=== PATIENT | female | born 1980 | race Caucasian/White ===

== ENCOUNTER → 2016-11-10 | Outpatient (CLI) | payer OTHER ==
[~2016-11-10] MED LIST: MTR600X PO; OXYC-57 PO; PRENTAB26 PO
[2016-11-10 12:57] LABS: HEMATOCRIT 33.6 % (37-47)
[2016-11-10 13:49] LABS: URINE APPEARANCE CLEAR (CLEAR); URINE BILIRUBIN NEG (NEG); URINE COLOR YELLOW; URINE EPITHELIAL CELL AUTO 20-30 /lpf (0-5); URINE NITRITE NEG (NEG); UROBILINOGEN NEG (NEG)
[2016-11-10 13:58] LABS: MANUAL MICROSCOPIC REQUIRED? NO; REVIEW REQ? NO
[2016-11-10 14:24] LABS: GTGD 50 Grams
== END | disposition home or self-care (01) ==
LOC: C.LAB1850 11:35
PROVIDERS: ATTEND Obstetrics & Gynecology
DX: O09.523 Supervision of elderly multigravida, third trimester (principal)

== ENCOUNTER → 2016-12-30 | Outpatient (CLI) | payer OTHER | END | disposition home or self-care (01) | LOC: C.LABSPEC 13:40 | PROVIDERS: ATTEND Obstetrics & Gynecology | DX: O09.523 Supervision of elderly multigravida, third trimester (principal) ==

== ENCOUNTER 2017-01-19 05:58 | Inpatient (IN) | payer OTHER ==
--- NOTE | 2017-01-16 11:24 | PAT Medication Instructions ---
Service Date Jan 16, 2017. Current Home Medication List Multivit/Min/Iron/Fol Ac/Pren ( Vitamin), 1 TAB PO QPM Medication Instructions For Your Scheduled Surgery - Take the following medications as scheduled the night before surgery: Multivit/Min/Iron/Fol Ac/Pren ( Vitamin), 1 TAB PO QPM If you have any questions please call us at [phone] (Ann Fajardo PA-C) or [phone] or [phone]
[2017-01-16 12:19] LABS: BASO % 0.1 %; BASO ABS # 0.01 K/uL (0-0.2); COMPLETE YES; EOS % 0.6 %; HEMATOCRIT 32.9 % (37-47); IG% 0.6 %; LYMPH % 19.3 %; LYMPH ABS # 1.63 K/uL (1.2-3.4); MEAN CELL VOLUME 77.2 fL (80-100); MEAN CORPUSCULAR HEMOGLOBIN 25.4 pg (25-34); MEAN CORPUSCULAR HGB CONC 32.8 g/dl (32-36); MEAN PLATELET VOLUME 10.4 fL (7.4-10.4); MONO % 8.1 %; NEUT % 71.3 %; PLATELET COUNT 295 K/uL (130-400); RED BLOOD COUNT 4.26 M/uL (4.2-5.4); WHITE BLOOD COUNT 8.43 K/uL (4.8-10.8)
[~2017-01-19] VITALS: Ht 154.9 cm; Wt 79.4 kg
[2017-01-19] VITALS (14 sets, daily range): BP systolic 90–128; BP diastolic 60–76; PULSE 70–84; TEMP 36.5–37; O2SAT 95–100; Ht 154.9 cm; Wt 79.4 kg
[~2017-01-19 05:58] MED LIST changes: -MTR600X PO; -OXYC-57 PO
[2017-01-19] MEDS ORDERED: CITRIC ACID/SODIUM CITRATE 15 ML UDC PO SCH (06:00)
[2017-01-19] MEDS ORDERED: PATIENT'S HEIGHT AND/OR WEIGHT NEEDED SCH (06:00)
[2017-01-19] MEDS ORDERED: CEFAZOLIN IV 2,000 MG in DEXTROSE 5% 50ML IV SCH (06:00)
[2017-01-19] MEDS: LACTATED RINGER'S 1000ML 1,000 ML IV SCH ×2 (06:27→07:11)
[2017-01-19] MEDS ORDERED: DiphenhydrAMINE HCL 50 MG/ML VIAL IV PRN ×2 (07:00→08:30)
[2017-01-19] MEDS ORDERED: METOCLOPRAMIDE HCL INJ 20 MG in SODIUM CHLORIDE 0.9% 50ML 50 ML IV PRN (07:00)
[2017-01-19] MEDS ORDERED: NO NARCOTICS OR SEDATIVES SCH (07:00)
[2017-01-19] MEDS ORDERED: NALOXONE HCL INJ 0.08 MG in SYRINGE 1.8 ML IV PRN (07:00)
[2017-01-19] MEDS ORDERED: NALOXONE HCL INJ 1 MG in SODIUM CHLORIDE 0.9% 1000ML 1,000 ML IV PRN (07:00)
[2017-01-19] MEDS ORDERED: MEPERIDINE HCL 25 MG/ML CARP IV PRN (07:00)
[2017-01-19] MEDS ORDERED: NALOXONE HCL 0.4 MG/1 ML VIAL/CARP IV PRN (07:00)
[2017-01-19] MEDS ORDERED: MoRPHine SULFATE PF 1 MG/ML 10 ML AMP/VIAL EPI PRN (07:00)
[2017-01-19] MEDS ORDERED: PROMETHAZINE HCL INJ 25 MG in SODIUM CHLORIDE 0.9% 50ML 50 ML IV PRN (07:00)
[2017-01-19] MEDS ORDERED: SODIUM CHLORIDE 0.9% 1000ML 1,000 ML IV PRN (07:00)
[2017-01-19] MEDS ORDERED: NALBUPHINE HCL INJ 10 MG/ML AMP IV PRN (07:00)
[2017-01-19] MEDS ORDERED: MoRPHine SULFATE 2 MG/ML CARP IV PRN (07:00)
[2017-01-19] MEDS ORDERED: EpHEDrine SULFATE INJ 50 MG/ML AMP IV PRN (07:00)
[2017-01-19] MEDS ORDERED: ONDANSETRON INJ 2 MG/ML 2 ML VIAL IV PRN ×2 (07:00→08:30)
[2017-01-19] MEDS ORDERED: LACTATED RINGER'S 1000ML 500 ML IV PRN (07:00)
[2017-01-19] MEDS ORDERED: MoRPHine SULFATE PF 1 MG/ML 10 ML AMP/VIAL ONE (07:09)
[2017-01-19] MEDS ORDERED: OXYTOCIN INJ 10 UNITS/ML VIAL ONE (07:09)
[2017-01-19] MEDS ORDERED: FENTANYL CITRATE INJ 50 MCG/1 ML 2 ML VIAL ONE (07:09)
[2017-01-19] MEDS ORDERED: ONDANSETRON INJ 2 MG/ML 2 ML VIAL ONE (07:10)
[2017-01-19] MEDS ORDERED: KETOROLAC TROMETHAMINE 30 MG/ML VIAL ONE (08:17)
[2017-01-19] MEDS ORDERED: PHENYLEPHRINE 100MCG/ML 5ML SYR ONE (08:17)
[2017-01-19] MEDS ORDERED: LACTATED RINGER'S 1000ML 1,000 ML IV SCH (08:21)
[2017-01-19] MEDS ORDERED: OXYTOCIN INJ 20 UNITS in LACTATED RINGER'S 1000ML 1,000 ML IV SCH (08:27)
[2017-01-19] MEDS ORDERED: LANOLIN OINT EXT PRN ×4 (08:30)
[2017-01-19] MEDS ORDERED: HYDROCORTISONE ACETATE 25 MG SUPP PR PRN ×2 (08:30)
[2017-01-19] MEDS ORDERED: DIPHTHERIA/TETANUS/PERTUSSIS 0.5 ML SYR/VIAL IM. ONE ×2 (08:30)
[2017-01-19] MEDS ORDERED: BENZOCAINE 20% AER SPR 82.5 GM CAN EXT PRN ×2 (08:30)
[2017-01-19] MEDS ORDERED: OXYCODONE/ACETAMINOPHEN 5-325 TAB PO PRN ×2 (08:30)
[2017-01-19] MEDS ORDERED: SUPERCREAM 0.870 % 15GM JAR EXT PRN ×2 (08:30)
[2017-01-19] MEDS ORDERED: MEPERIDINE HCL 75 MG/ML CARP IV PRN (08:30)
[2017-01-19] MEDS ORDERED: MEPERIDINE HCL 50 MG/ML CARP IV PRN (08:30)
[2017-01-19] MEDS ORDERED: IBUPROFEN 600 MG TAB PO PRN (08:30)
[2017-01-19] MEDS ORDERED: KETOROLAC TROMETHAMINE 30 MG/ML VIAL IV. PRN (08:30)
--- NOTE | 2017-01-19 08:39 | [facility] Post Operative Brief Note ---
Immediate Operative Summary Operative Date Jan 19, 2017. Pre-Operative Diagnosis 1. Prior Casearean Section 2. Desire for Sterilization Post-Operative Diagnosis Same Procedure(s) Performed 1. Repeat Lower Uterine Transverse Caesarean Section for the of a viable male child at 0752. 2. Bilateral Tubal Ligation Surgeon Dr. Staples Route Driver Surgeon(s) Dr. Humphrey Estimated Blood Loss 500cc Findings Normal tubes and ovaries. Infant in vertex presentation. Moderate scar tissue. Specimens 1. Placenta: Hold 2. Cord blood obtained 3. Right and left portion of fallopian tubes Complication(s) None Disposition Recovery Room / PACU
--- NOTE | 2017-01-19 08:55 | OPERATIVE REPORT ---
DATE OF OPERATION: 01/19/2017 PREOPERATIVE DIAGNOSES: Prior section x2 and desires sterilization. POSTOPERATIVE DIAGNOSES: Same. PROCEDURES: Repeat lower transverse section for a of viable male child at 07:52 a.m. and bilateral tubal ligation. SURGEON: Dr. Katina Staples. INTERNAL MEDICINE SPECIALIST: Mili Humphrey MD ESTIMATED BLOOD LOSS: 500 mL. FINDINGS: Normal tubes and ovaries, in vertex presentation and moderate scar tissue noted. SPECIMENS: Placenta for hold, cord blood and right and left portions of fallopian tubes. COMPLICATIONS: None. DISPOSITION: Stable to recovery room. DESCRIPTION OF PROCEDURE: Joy was placed on the table in supine position with a leftward tilt, prepped and draped in standard sterile fashion and a hard time-out was taken prior to proceeding. A Pfannenstiel incision was created through the prior scar and carried down to the subcutaneous tissue to the fascia. Moderate scar was encountered throughout this dissection. The fascia was scored using a Bovie electrocautery and finally opened using Aster scissors. The fascia was elevated and sharply and bluntly dissected off the underlying rectus muscles. The midline of the rectus was already widely . The peritoneum was entered bluntly and this was extended using pressure from the creping machine operator's hands. The bladder blade was placed. A flap was begun; however, there was significant scar tissue in the lower uterine segment. So, the flap was abandoned and a mid transverse uterine incision was made. Entry to the uterus was done in a blunt manner, where clear fluid was encountered. The vertex was elevated to the hysterotomy and delivered using mild fundal pressure. The was noted to cry immediately upon delivery and move all 4 extremities equally. The cord was doubly clamped, cut and the was taken to the warmer. The placenta was delivered manually and found to be intact with a 3-vessel cord. The uterus was exteriorized, cleared of clot and debris and then closed in a 2-layer fashion using 0 Vicryl suture in a running locked manner with an imbricating second layer. Attention was then turned to the fallopian tubes, which were each in their turn grasped with a Roxann and 0 chromic suture was used to create an isolated knuckle of tube and then a second ligature was also placed with 0 Vicryl. The isolated knuckle was then excised and handed off for pathology. Hemostasis was seen and the ovaries were seen to be normal bilaterally. The uterus was then gently reapproximated. The gutters were cleared of all clot and debris. The rectus was allowed to reapproximate naturally and the fascia was closed using 1 Vicryl in a running nonlocked manner. At the completion of the repair, the fascia was examined and found to be free of defect. The subcutaneous tissue was copiously irrigated and then closed using 3-0 chromic and the skin was then closed using 4-0 Monocryl and Dermabond dressing was applied. I attest to the content of the Intraoperative Record and any orders documented therein. Any exceptio ns are noted below.
--- NOTE | 2017-01-19 09:10 | Anesthesiology Progress Note ---
Anesthesia Post Op Note Date & Time Jan 19, 2017 at 09:10 Notes Mental Status: alert / awake / arousable, participated in evaluation Pt Amnestic to Procedure: No Nausea / Vomiting: adequately controlled Pain: adequately controlled Airway Patency, RR, SpO2: stable & adequate BP & HR: stable & adequate Hydration State: stable & adequate Neuraxial Anesthesia: was administered, sensory block is resolving Anesthetic Complications: no major complications apparent
[2017-01-19] MEDS: SIMETHICONE 80 MG CHEW PO SCH ×4 (09:21→19:35)
[2017-01-19] MEDS: OXYTOCIN INJ 30 UNITS in LACTATED RINGER'S 1000ML 1,000 ML IV SCH ×2 (09:54→18:54)
[2017-01-19] MEDS: KETOROLAC TROMETHAMINE 30 MG/ML VIAL IV. PRN ×2 (14:35→20:56)
[2017-01-19] MEDS: DOCUSATE SODIUM 100 MG CAP PO SCH (19:35)
[2017-01-19] MEDS ORDERED: DOCUSATE SODIUM 100 MG CAP PO SCH (20:00)
[2017-01-20] VITALS (7 sets, daily range): BP systolic 95–110; BP diastolic 60–75; PULSE 78–91; TEMP 36.6–37.1; O2SAT 95–99
[2017-01-20] MEDS: OXYTOCIN INJ 30 UNITS in LACTATED RINGER'S 1000ML 1,000 ML IV SCH ×3 (01:04→15:25)
[2017-01-20] MEDS ORDERED: DiphenhydrAMINE HCL 50 MG/ML VIAL IV PRN (02:00)
[2017-01-20] MEDS ORDERED: ONDANSETRON INJ 2 MG/ML 2 ML VIAL IV PRN (02:00)
[2017-01-20] MEDS ORDERED: MEPERIDINE HCL 50 MG/ML CARP IV PRN (02:00)
[2017-01-20] MEDS ORDERED: PROMETHAZINE HCL INJ 25 MG in SODIUM CHLORIDE 0.9% 50ML 50 ML IV PRN (02:00)
[2017-01-20] MEDS ORDERED: MEPERIDINE HCL 75 MG/ML CARP IV PRN (02:00)
[2017-01-20] MEDS ORDERED: DC INTRASPINAL MORPHINE SCH (02:00)
[2017-01-20] MEDS ORDERED: KETOROLAC TROMETHAMINE 30 MG/ML VIAL IV. PRN (02:00)
--- NOTE | 2017-01-20 06:54 | Progress Note ---
Subjective Jan 20, 2017. Subjective conversation w/ patient, physical exam Ambulation: limited ambulation (going to walk around after garcia is taken out) Voiding: garcia catheter in place Passing Gas: Yes Diet Tolerance: Clear Liquids (switching over to regular diet) Lochia: Small Feeding Type: Breast Feeding Review of Systems Constitutional: No chills, No fever, No sweats Respiratory: No cough, No shortness of breath Cardiac: No chest pain, No claudication Objective Vital Signs Date Time Temp Pulse Resp B/P Pulse Ox O2 Delivery O2 Flow Rate FiO2 01/20/17 04:00 37.1 80 18 96/63 98 Room Air 01/20/17 02:00 18 98 01/20/17 01:00 18 99 01/20/17 00:00 20 99 01/19/17 23:30 99 Room Air 01/19/17 23:30 37.0 70 18 96/60 99 Room Air 01/19/17 22:36 18 98 01/19/17 22:00 18 95 01/19/17 21:00 18 97 01/19/17 20:00 37.0 84 18 105/68 98 Room Air 01/19/17 20:00 18 98 01/19/17 19:00 16 95 01/19/17 18:00 18 98 01/19/17 17:00 16 96 01/19/17 16:00 18 98 01/19/17 16:00 98 Room Air 01/19/17 16:00 36.9 74 18 101/67 98 Room Air 01/19/17 15:00 20 97 01/19/17 14:00 18 96 01/19/17 13:00 18 97 01/19/17 12:00 18 97 01/19/17 12:00 36.7 81 18 90/64 97 Room Air 01/19/17 11:00 100 Room Air 01/19/17 11:00 18 100 01/19/17 11:00 100 Room Air 01/19/17 11:00 36.5 78 18 128/76 100 Room Air Physical Exam General Appearance: WELL-APPEARING, NO APPARENT DISTRESS Respiratory/Chest: lungs clear, no accessory muscle use Cardiovascular: regular rate, rhythm, no murmur Fundus: Firm, Tender (appopriate for post op day 1), Relation to Umbilicus (at the umbilicus) Incision Description: Clean, Dry & Intact Extremities: non-tender, no calf tenderness Laboratory Results Last 24 Hours Test 01/20/17 06:00 Assessment and Plan Post-Op Day#: 1 Continue Routine Care: s/p C section Day 1 vitals reviewed and wnl Hgb pending blood: A+, rubella immune, GBS- garcia to be taken out this morning encourage ambulation, encourage and monitor lochia will transition to oral pain meds this morning CONTINUE ROUTINE POST-OP CARE Resident Physician Supervision Note: I was present with Dr. Hamilton during the history and exam. I discussed the case with the resident and agree with the findings and plan as documented in the note. Any exceptions or clarifications are listed here: Doing well, routine care. Documented By: Mili Humphrey
[2017-01-20 07:01] LABS: BASO % 0.1 %; BASO ABS # 0.01 K/uL (0-0.2); COMPLETE YES; EOS % 0.7 %; HEMATOCRIT 29.1 % (37-47); IG% 0.4 %; LYMPH % 17.2 %; LYMPH ABS # 1.65 K/uL (1.2-3.4); MEAN CELL VOLUME 78.9 fL (80-100); MEAN CORPUSCULAR HEMOGLOBIN 25.5 pg (25-34); MEAN CORPUSCULAR HGB CONC 32.3 g/dl (32-36); MEAN PLATELET VOLUME 10.5 fL (7.4-10.4); MONO % 5.9 %; NEUT % 75.7 %; PLATELET COUNT 215 K/uL (130-400); RED BLOOD COUNT 3.69 M/uL (4.2-5.4); WHITE BLOOD COUNT 9.57 K/uL (4.8-10.8)
[2017-01-20] MEDS ORDERED: PRENATAL VITAMIN TAB PO SCH (08:00)
[2017-01-20] MEDS: SIMETHICONE 80 MG CHEW PO SCH ×4 (08:32→20:08)
[2017-01-20] MEDS: DOCUSATE SODIUM 100 MG CAP PO SCH ×2 (08:32→20:08)
[2017-01-20] MEDS: PRENATAL VITAMIN TAB PO SCH (08:32)
[2017-01-20] MEDS: FERROUS SULFATE 325 MG TAB PO SCH (08:32)
[2017-01-20] MEDS: OXYCODONE/ACETAMINOPHEN 5-325 TAB PO PRN ×3 (08:33→16:22)
[2017-01-20] MEDS: IBUPROFEN 600 MG TAB PO PRN ×2 (12:31→16:21)
[2017-01-21] MEDS ORDERED: BISACODYL 10 MG SUPP PR PRN (07:00)
--- NOTE | 2017-01-21 07:38 | Progress Note ---
Subjective Jan 21, 2017. Subjective conversation w/ patient, physical exam Ambulation: ambulating normally Voiding: no voiding problems Passing Gas: Yes Diet Tolerance: Regular Diet Lochia: Small Feeding Type: Breast Feeding Review of Systems Constitutional: No chills, No fever, No sweats Respiratory: No cough, No shortness of breath Cardiac: No chest pain, No claudication Objective Vital Signs Date Time Temp Pulse Resp B/P Pulse Ox O2 Delivery O2 Flow Rate FiO2 01/20/17 23:30 36.7 91 20 110/75 Room Air 01/20/17 23:30 Room Air 01/20/17 16:00 96 Room Air 01/20/17 16:00 36.9 82 20 98/64 96 Room Air 01/20/17 07:40 36.6 78 18 95/60 95 Room Air 01/20/17 07:40 95 Room Air Physical Exam General Appearance: WELL-APPEARING, NO APPARENT DISTRESS Respiratory/Chest: lungs clear, no respiratory distress Cardiovascular: regular rate, rhythm, no murmur Abdomen: + pertinent finding (has abdominal binder on) Fundus: Firm, Tender (appropriate as patient has not recieved pain meds since 8pm), Relation to Umbilicus (at umbilicus) Incision Description: Clean, Dry & Intact Extremities: non-tender, no calf tenderness Assessment and Plan Post-Op Day#: 2 Continue Routine Care: s/p C section Day 2 vitals reviewed and wnl Hgb 9.4 blood: A+, rubella immune, GBS- encourage ambulation, encourage and monitor lochia CONTINUE ROUTINE POST-OP CARE Resident Physician Supervision Note: I interviewed and examined the patient. Discussed with Dr. Hamilton and agree with findings and plan as documented in the note. Any exceptions or clarifications are listed here: Pt not taking her pain meds in a regular fashion. discussed importance. Documented By: Fidel Kaiser
[2017-01-21] MEDS: PRENATAL VITAMIN TAB PO SCH (07:43)
[2017-01-21] MEDS: DOCUSATE SODIUM 100 MG CAP PO SCH ×2 (07:43→20:02)
[2017-01-21] MEDS: SIMETHICONE 80 MG CHEW PO SCH ×4 (07:43→20:01)
[2017-01-21] MEDS: FERROUS SULFATE 325 MG TAB PO SCH (07:43)
[2017-01-21] MEDS: OXYCODONE/ACETAMINOPHEN 5-325 TAB PO PRN ×4 (07:44→20:01)
[2017-01-21] MEDS: IBUPROFEN 600 MG TAB PO PRN ×4 (07:45→20:01)
[2017-01-21 08:10] VITALS: BP 124/84; PULSE 91; TEMP 36.7; O2SAT 96; O2SAT 99
[2017-01-21 15:20] VITALS: BP 110/73; PULSE 85; TEMP 36.7; O2SAT 96
[2017-01-21 23:25] VITALS: BP 110/72; PULSE 80; TEMP 36.7; O2SAT 96
[2017-01-22] MEDS: IBUPROFEN 600 MG TAB PO PRN ×3 (00:16→08:22)
[2017-01-22] MEDS: OXYCODONE/ACETAMINOPHEN 5-325 TAB PO PRN ×3 (00:17→08:23)
--- NOTE | 2017-01-22 06:52 | Discharge Instructions ---
Discharge Instructions Date of Service Jan 22, 2017. Admission Reason for Admission: Previous Discharge Discharge Diagnosis / Problem: C- Section and Tubal Ligation Discharge Goals Goal(s): Routine recovery after Medications Continue Dispensed Medications: supercream, dermaplast, tucks, lansinoh Activity Recommendations Activity Limitations: per Instructions/Follow-up section . Instructions / Follow-Up Instructions / Follow-Up ACTIVITY RECOMMENDATIONS: * Gradual return to full activity over the next 2-3 weeks. * No lifting - nothing heavier than baby over the next 2-3 weeks. * Do not engage in vigorous exercise, sexual activity or sports until cleared by your physician. * Do not drive or operate any motorized equipment until cleared by your physician. * You may shower/bathe daily. MEDICATIONS: For discomfort or pain, you may use Acetaminophen (Tylenol), Ibuprofen (Advil), or Naproxen (Aleve) following the package directions. For constipation you may use Colace following the package directions. BREAST CARE: If you are not breast feeding: * Wear a supportive bra 24 hours a day for one to two weeks. * Avoid stimulating your breasts and nipples as much as possible during the first few weeks after delivery. * When taking a shower, have the warm water hit your back, not breasts. * When your breasts feel full, apply ice packs. Usually three to four times a day helps ease the discomfort. * Take a mild pain medication (Tylenol / Motrin) when you are uncomfortable. If breast feeding: * Use breast milk to lubricate nipples. Lansinoh cream may be used for sore nipples. You do not need to remove cream prior to breast feeding. If using a different brand of cream, check the label for directions regarding removal of cream prior to nursing. * Wear a supportive bra. * If having problems with breasts or breast feeding, call a data consultant or your health care provider. EPISIOTOMY CARE: After delivery, if you have an episiotomy (stitches), the following steps will ease discomfort and aid healing. * For the first 24 hours after delivery, place ice packs next to your episiotomy to help reduce swelling. * After the first 24 hour-period, sitz baths, either portable or in the tub, are suggested. A shower with a shower arm sprayed over the episiotomy may be comforting. * Karly care should be done after each voiding and bowel movement. Squirt warm water from a plastic bottle over the perineum (region of the body between the anus and urinary opening) and pat dry. * Use Dermoplast to ease discomfort. Shake container. [place] directly over the episiotomy. Place a Tucks on a clean sanitary pad next to your episiotomy. SPECIAL CARE INSTRUCTIONS: When you are discharged from the hospital, it is important for you to follow the instructions listed below: * During the first week at home, you should be able to care for yourself and your baby. In addition, the usual light household activities are encouraged. * Limit your activities to the way you feel. Do not try to clean the house or move furniture. Be sensible. * If you actively engage in sports and have done so up until the time of your delivery, you may resume these activities as soon as you feel able. This may take up to one month or even longer. Use good judgment. * Continue to take your vitamins for at least six weeks after the of your baby. * Your diet need not be limited unless you were on a special diet before your delivery. Breast-feeding mothers need around 2500 calories per day and at least 64-80 ounces of fluid per day (8 to 10 glasses). * You should eat foods from the four major food groups. Crash diets or fad diets are to be avoided. Eating lean meats, fresh fruits and vegetables, low-fat dairy products, high fiber foods and a regular exercise program, will help you get back to your pre- weight without putting your health at risk. * Constipation is sometimes a problem after delivery. Take a mild laxative as needed. If breast feeding, Milk of Magnesia is acceptable to use. You may use a suppository or Fleets enema if no episiotomy. * A daily shower or tub bath is suggested. Be sure to thoroughly and gently dry the perineum. * A bloody vaginal discharge will usually continue until around four weeks post . A small amount of bleeding may continue for as long as six weeks. Vaginal discharge changes from the bright red bleeding after delivery to pink then brownish and finally yellowish-pink before becoming white and disappearing. * Bleeding may increase with activity. Your first period may come in 4-8 weeks. If you are breast feeding, your period may be delayed even longer. * [place] (sex) can begin whenever both you and your partner feel comfortable and do not have any form of genital infection. It is recommended that you wait at least six weeks for internal and external healing to occur. If you have questions, please talk to your health care practitioner. A condom should be used to prevent infection and . * Foreplay, gentle intercourse and lubrication is very important the first several times to prevent pain. A water-based lubricant such as K-Y jelly or Astroglide may be used. * If you have RH negative blood and your baby is RH positive, you will receive RHOGAM by injection prior to discharge. The nurse will give you a card to keep with you that has the date and place that you received RHOGAM after delivery. * During your care, you had a Rubella screen done to check for the presence of rubella antibodies in your blood. If your test was negative, you will receive a Rubella vaccine prior to discharge. This vaccine may cause a fever, soreness at the injection site and flu-like symptoms. If these symptoms persist, notify your health care practitioner. is not advised for one month after a Rubella vaccine. * Verbalizes understanding of car seat law as reviewed with patient nursing. * Car Seat hand-out given and reviewed with patient by nursing. * Shaken baby information reviewed with patient by nursing. Call you doctor if: * Heavy bleeding (saturating several pads an hour) or passing clots the size of your fist. * A fever >101 degrees F (38.3 degrees C) on two occasions four hours apart and /or chills. * Unusual pain in the pelvic or vaginal areas. * "Baby Blues" lasting longer than two weeks. If you have any questions or concerns, call your health care practitioner at . FOLLOW UP VISIT: * Please call the office at to schedule a 6 week examination. It is important you keep this appointment. It is important for you to make arrangements for either yearly or twice yearly check-ups thereafter. Current Hospital Diet Patient's current hospital diet: Regular OB Diet Discharge Diet Recommended Diet: Regular Diet Procedures Procedures Performed: 1. Repeat Lower Uterine Transverse Caesarean Section for the of a viable male child at 0752. 2. Bilateral Tubal Ligation Pending Studies Studies pending at discharge: no Medical Emergencies . Who to Call and When: Medical Emergencies: If at any time you feel your situation is an emergency, please call 911 immediately. . Non-Emergent Contact Non-Emergency issues call your: Primary Care Provider, Plaster Applicator . . "Provider Documentation" section prepared by Vince Hamilton. VTE Core Measure Inpt VTE Proph given/why not?: Treatment not indicated
--- NOTE | 2017-01-22 07:34 | Progress Note ---
Subjective Jan 22, 2017. Subjective conversation w/ patient, physical exam Ambulation: ambulating normally Voiding: no voiding problems Passing Gas: Yes Diet Tolerance: Regular Diet Lochia: Small Feeding Type: Breast Feeding Review of Systems Constitutional: No chills, No fever, No sweats Respiratory: No cough, No shortness of breath Cardiac: No chest pain, No claudication Objective Vital Signs Date Time Temp Pulse Resp B/P Pulse Ox O2 Delivery O2 Flow Rate FiO2 01/21/17 23:25 36.7 80 19 110/72 Room Air 01/21/17 23:25 96 Room Air 01/21/17 15:20 36.7 85 16 110/73 96 Room Air 01/21/17 15:20 96 Room Air 01/21/17 08:10 36.7 91 20 124/84 99 Room Air 01/21/17 08:10 96 Room Air Physical Exam General Appearance: WELL-APPEARING, NO APPARENT DISTRESS Respiratory/Chest: lungs clear, no respiratory distress Cardiovascular: regular rate, rhythm, no murmur Fundus: Firm, Tender (mild tenderness on deep palpation), Relation to Umbilicus (1 cm below) Incision Description: Clean, Dry & Intact Extremities: non-tender, no calf tenderness Assessment and Plan Post-Op Day#: 3 Continue Routine Care: s/p C section Day 3 vitals reviewed and wnl Hgb 9.4 2 days ago blood: A+, rubella immune, GBS- encourage ambulation, encourage and monitor lochia patient counselled on discharge instructions PATIENT TO BE DISCHARGED TODAY Resident Physician Supervision Note: I interviewed and examined the patient. Discussed with Dr. Hamilton and agree with findings and plan as documented in the note. Any exceptions or clarifications are listed here: Patient is ready for discharge. plan percocet for pain and motrin. Checked on [place] PDMP. No issues. instructions reviewed by me. f/u 6 wks pp check. her fundus was non tender for me, ff 2 down. and incision c/d/i Documented By: Leanna Mead
[2017-01-22 08:00] VITALS: BP 118/84; PULSE 76; TEMP 36.6
[2017-01-22] MEDS ORDERED: MTR600X PO (08:15)
[2017-01-22] MEDS ORDERED: OXYC-57 PO (08:15)
[2017-01-22] MEDS: PRENATAL VITAMIN TAB PO SCH (08:21)
[2017-01-22] MEDS: FERROUS SULFATE 325 MG TAB PO SCH (08:21)
[2017-01-22] MEDS: DOCUSATE SODIUM 100 MG CAP PO SCH (08:21)
[2017-01-22] MEDS: SIMETHICONE 80 MG CHEW PO SCH (08:22)
[2017-01-22 08:50] VITALS: BP_DIAS 84; PULSE 76; TEMP 36.6
--- NOTE | 2017-01-26 12:00 | DISCHARGE SUMMARY ---
COURSE OF CARE: Joy presented to the hospital as planned for a repeat low transverse section and bilateral tubal ligation. Her surgery was done on the and was uncomplicated. Please see operative report for details. Her postop course was uncomplicated and notable for a hemoglobin of 9.4 postoperatively from a preop of 10.8. Vital signs remained within normal limits. The patient's recovery was smooth and she was discharged to home on the with medications including ibuprofen and Percocet 20 tablets and instructions to follow up in the office at the usual 6-week interval.
== END 2017-01-22 11:30 | disposition home or self-care (01) | DRG 766 ==
LOC: C.LD 05:58 → EDSTATUS 07:30 → C.OBG 11:15
PROVIDERS: ADMIT Obstetrics & Gynecology; ATTEND Obstetrics & Gynecology
PROC: 10D00Z1 Extraction of Products of Conception, Low, Open Approach (ICD-10-PCS; principal; 2017-01-19 07:30)
PROC: 0UL70ZZ Occlusion of Bilateral Fallopian Tubes, Open Approach (ICD-10-PCS; principal; 2017-01-19 07:30)
DX: O34.211 Maternal care for low transverse scar from previous cesarean delivery (principal); Z37.0 Single live birth; Z30.2 Encounter for sterilization; Z3A.39 39 weeks gestation of pregnancy

== ENCOUNTER 2017-01-26 01:14 | Emergency (ER) | payer OTHER ==
[~2017-01-26] VITALS: Ht 154.9 cm; Wt 64.4 kg
[~2017-01-26 01:14] MED LIST changes: +MTR600X PO; +OXYC-57 PO
[2017-01-26 01:17] VITALS: TEMP 37.1; Ht 154.9 cm; Wt 64.4 kg
--- NOTE | 2017-01-26 01:43 | EMERGENCY ROOM VISIT NOTE ---
History Report prepared by Preet: Mihaela Carrera Under the Supervision of: Dr. Claribel Altamirano D.O. First contact with patient: :29 Chief Complaint: ILLNESS Stated Complaint: CHILLS/URINARY SYMPTOMS History of Present Illness The patient is a 36 year old female who presents to the Emergency Room with complaints of constant illness symptoms beginning tonight. The patient states that she got up to use the restroom when she began to get an overall body needle sensation and the shakes. The patient experienced pain with urination. She does note that she is constipated. The patient denies dizziness, weakness, or urinary symptoms yesterday. She had a on Thursday, this was her third . The patient notes she has had a UTI before but it has been a few years since. She denies vomiting or change in appetite. Source of History: patient Onset: tonight Position: other (global) Quality: other (illness) Timing: constant Associated Symptoms: + urinary symptoms (pain with urination), No vomiting Note: Patient is experiencing all over body needle sensation and shakes. Review of Systems See HPI for pertinent positives & negatives. A total of 10 systems reviewed and were otherwise negative. Past Medical & Surgical Medical Problems: (1) SIUP @ Term Family History Patient reports no known family medical history. Social History Smoking Status: Never Smoker Smokeless Tobacco Use: No Marital Status: Housing Status: lives with family Current/Historical Medications Scheduled Multivit/Min/Iron/Fol Ac/Pren ( Vitamin), 1 TAB PO QPM Scheduled PRN Ibuprofen (Ibuprofen), 600 MG PO Q6 PRN for Pain, ROBLERO, Cramping, or Fever Oxycodone/Acetaminophen 5MG/325MG (Percocet 5MG/325MG), 1-2 TAB PO Q4H PRN for Pain - Pain Scale 1-5 Allergies Coded Allergies: No Known Allergies (Unverified , 01/26/17) Physical Exam Vital Signs Date Time Temp Pulse Resp B/P Pulse Ox O2 Delivery O2 Flow Rate FiO2 01/26/17 03:29 77 18 113/74 99 01/26/17 02:04 84 18 121/77 01/26/17 02:03 79 01/26/17 01:57 Room Air 01/26/17 01:17 37.1 89 18 137/83 98 Room Air Physical Exam HEENT: Head - normocephalic and atraumatic Pupils are equal, round, and reactive to light. Extraocular eye muscles are intact, and sclera are anicteric. Nose - moist nasal mucosa without discharge. Mouth - moist buccal mucosa. Oropharynx is nonerythematous and there is no tonsillar exudate or edema noted. Neck: Supple; no JVD, nuchal rigidity, cervical lymphadenopathy. Heart: Regular rate and rhythm. There is a normal S1 and S2 with no murmurs, clicks, or gallops appreciated. Lungs: Clear to auscultation bilaterally with no wheezes, rales, or rhonchi. Abdomen: incision appears to be healing well. Soft, completely nontender, nondistended, with good bowel sounds. There are no palpable pulsatile masses or hepatosplenomegaly. There is no guarding, rigidity, or rebound noted. Extremities: No evidence of cyanosis, clubbing, or edema. There are easily palpable peripheral pulses. Skin: warm and dry with good turgor and no rashes. Medical Decision & Procedures ER Provider Diagnostic Interpretation: X-ray results as stated below per interpretation by me: Chest: No pulmonary infiltrates, no cardiomegaly. Laboratory Results 01/26/17 01:40 Red Blood Count 4.36, Mean Corpuscular Volume 77.5, Mean Corpuscular Hemoglobin 25.5, Mean Corpuscular Hemoglobin Concent 32.8, Mean Platelet Volume 9.4, Neutrophils (%) (Auto) 64.0, Lymphocytes (%) (Auto) 25.9, Monocytes (%) (Auto) 6.5, Eosinophils (%) (Auto) 2.7, Basophils (%) (Auto) 0.2, Neutrophils # (Auto) 5.15, Lymphocytes # (Auto) 2.09, Monocytes # (Auto) 0.52, Eosinophils # (Auto) 0.22, Basophils # (Auto) 0.02 01/26/17 01:40 Test 01/26/17 01:40 01/26/17 01:52 01/26/17 02:00 White Blood Count 8.06 K/uL (4.8-10.8) Red Blood Count 4.36 M/uL (4.2-5.4) Hemoglobin 11.1 g/dL (12.0-16.0) Hematocrit 33.8 % (37-47) Mean Corpuscular Volume 77.5 fL (80-100) Mean Corpuscular Hemoglobin 25.5 pg (25-34) Mean Corpuscular Hemoglobin Concent 32.8 g/dl (32-36) Platelet Count 329 K/uL (130-400) Mean Platelet Volume 9.4 fL (7.4-10.4) Neutrophils (%) (Auto) 64.0 % Lymphocytes (%) (Auto) 25.9 % Monocytes (%) (Auto) 6.5 % Eosinophils (%) (Auto) 2.7 % Basophils (%) (Auto) 0.2 % Neutrophils # (Auto) 5.15 K/uL (1.4-6.5) Lymphocytes # (Auto) 2.09 K/uL (1.2-3.4) Monocytes # (Auto) 0.52 K/uL (0.11-0.59) Eosinophils # (Auto) 0.22 K/uL (0-0.5) Basophils # (Auto) 0.02 K/uL (0-0.2) RDW Standard Deviation 45.6 fL (36.4-46.3) RDW Coefficient of Variation 16.1 % (11.5-14.5) Immature Granulocyte % (Auto) 0.7 % Immature Granulocyte # (Auto) 0.06 K/uL (0.00-0.02) Prothrombin Time 10.6 SECONDS (9.0-12.0) Prothromb Time International Ratio 1.0 (0.9-1.1) Activated Partial Thromboplast Time 27.3 SECONDS (21.0-31.0) Partial Thromboplastin Ratio 1.1 Anion Gap 11.0 mmol/L (3-11) Est Creatinine Clear Calc Drug Dose 120.5 ml/min Estimated GFR () 140.0 Estimated GFR (Non- 120.8 BUN/Creatinine Ratio 14.8 (10-20) Calcium Level 8.7 mg/dl (8.5-10.1) Total Bilirubin 0.3 mg/dl (0.2-1) Aspartate Amino Transf (AST/SGOT) 126 U/L (15-37) Alanine Aminotransferase (ALT/SGPT) 215 U/L (12-78) Alkaline Phosphatase 111 U/L (45-117) Total Protein 7.1 gm/dl (6.4-8.2) Albumin 2.9 gm/dl (3.4-5.0) Globulin 4.2 gm/dl (2.5-4.0) Albumin/Globulin Ratio 0.7 (0.9-2) Bedside Lactic Acid Venous 1.36 mmol/L (0.90-1.70) Urine Color YELLOW Urine Appearance CLEAR (CLEAR) Urine pH 6.0 (4.5-7.5) Urine Specific Pierson 1.005 (1.000-1.030) Urine Protein NEG (NEG) Urine Glucose (UA) NEG (NEG) Urine Ketones NEG (NEG) Urine Occult Blood NEG (NEG) Urine Nitrite NEG (NEG) Urine Bilirubin NEG (NEG) Urine Urobilinogen NEG (NEG) Urine Leukocyte Esterase NEG (NEG) Urine WBC (Auto) 1-5 /hpf (0-5) Urine RBC (Auto) 0-4 /hpf (0-4) Urine Hyaline Casts (Auto) 0 /lpf (0-5) Urine Epithelial Cells (Auto) 10-20 /lpf (0-5) Urine Bacteria (Auto) NEG (NEG) Laboratory results per my review. ED Course 0134: Past medical records reviewed. The patient was evaluated in room B12. A complete history and physical exam was performed. An IV lock was initiated and labs are drones above. A septic protocol was performed. A urine specimen was obtained. 0253: I talked with the patient about her . She had a scheduled C- section. went well and she did not experience high blood pressure or diabetes during. 0255: I spoke with Dr. Kam MATUTE. She will order for outpatient blood work to be done Thursday and will be seen in the office. 0315: Upon reevaluation, hemodynamically stable. I discussed findings and results with the patient. She verbalized agreement of the treatment plan. She was discharged home. Medical Decision The patient is a 36 year old female who presents to the ED with illness symptoms. Differential diagnosis includes sepsis, rigors, preeclampsia, pyelonephritis, cystitis, endometritis, wound infection. Lab findings include UA yellow clear urine with no significant signs of infection, lactic acid 1.3, normal renal function, normal glucose, BUN normal, AST 126, ALT 215, normal white blood cell count, hemoglobin 11.1, platelets 329 , CoAgs normal. This is a 36-year-old female patient who gave approximately 6 days ago through . The patient awoke this morning from sleep with the urge to urinate. The patient noticed a burning sensation when she urinated. She then developed severe shaking for approximate 5 minutes. She was brought to the emergency department by EMS. The patient has not been experiencing headaches, blurred vision or increased swelling. I was concerned about the possibility of preeclampsia or hellp syndrome. The shaking was not associated with a seizure. There were no obvious signs of infection. The patient will follow-up with her OB doctor on Thursday for an appointment so they can check her urine and take her blood pressure. She will have her transaminases drawn 1 hour prior to the appointment. The patient does have an elevated AST/ALT. She has no swelling to her face or extremities. She has no proteinuria. She has no hypertension or complaints of headache. Consults Time Called: 252 Consulting Physician: Dr. Kam WOMACK Returned Call: [phone] Kam MATUTE. She will order for outpatient blood work to be done Thursday and will be seen in the office. Impression Primary Impression: Tremor Additional Impression: Dysuria Scribe Attestation The scribe's documentation has been prepared under my direction and personally reviewed by me in its entirety. I confirm that the note above accurately reflects all work, treatment, procedures, and medical decision making performed by me. Departure Information Dispostion Home / Self-Care Referrals Kelly Sinha MD (PCP) Forms HOME CARE DOCUMENTATION FORM, IMPORTANT VISIT INFORMATION, WORK / SCHOOL INSTRUCTIONS Patient Instructions Dysuria, My [facility] [employer] Additional Instructions Rest. Follow up on Thursday with OB. Have blood drawn 1 hour before your appt. Return to the ER if you develop increased upper abdominal pain, headache, or fever. Problem Qualifiers
[2017-01-26 02:05] LABS: BASO % 0.2 %; BASO ABS # 0.02 K/uL (0-0.2); COMPLETE YES; EOS % 2.7 %; HEMATOCRIT 33.8 % (37-47); IG% 0.7 %; LYMPH % 25.9 %; LYMPH ABS # 2.09 K/uL (1.2-3.4); MEAN CELL VOLUME 77.5 fL (80-100); MEAN CORPUSCULAR HEMOGLOBIN 25.5 pg (25-34); MEAN CORPUSCULAR HGB CONC 32.8 g/dl (32-36); MEAN PLATELET VOLUME 9.4 fL (7.4-10.4); MONO % 6.5 %; PLATELET COUNT 329 K/uL (130-400); RED BLOOD COUNT 4.36 M/uL (4.2-5.4); WHITE BLOOD COUNT 8.06 K/uL (4.8-10.8)
[2017-01-26 02:12] LABS: URINE APPEARANCE CLEAR (CLEAR); URINE BILIRUBIN NEG (NEG); URINE COLOR YELLOW; URINE NITRITE NEG (NEG); URINE SPECIFIC GRAVITY 1.005 (1.000-1.030); UROBILINOGEN NEG (NEG); ZZUR CULT IF INDIC CLEAN CATCH NO
[2017-01-26 02:15] LABS: PARTIAL THROMBOPLASTIN RATIO 1.1; PROTHROMBIN TIME (PATIENT) 10.6 SECONDS (9.0-12.0)
[2017-01-26 02:19] LABS: MANUAL MICROSCOPIC REQUIRED? NO; REVIEW REQ? NO
[2017-01-26 02:23] LABS: BUN/CREATININE RATIO 14.8 (10-20); CALCIUM 8.7 mg/dl (8.5-10.1); CREATININE 0.56 mg/dl (0.60-1.20)
[2017-01-26 02:26] LABS: ALB/GLOB RATIO 0.7 (0.9-2)
[2017-01-26 03:29] VITALS: BP 113/74; PULSE 77; O2SAT 99
--- NOTE | 2017-01-26 07:12 | DIAGNOSTIC IMAGING REPORT ---
SINGLE VIEW CHEST CLINICAL HISTORY: Sepsis. FINDINGS: An AP, portable, upright chest radiograph is obtained. No prior studies are available for comparison at the time of dictation. The examination is degraded by portable technique, apical lordotic positioning, and patient rotation. The cardiomediastinal silhouette is unremarkable. The lungs and pleural spaces are clear. No pneumothorax is seen. The bony thorax is grossly intact. IMPRESSION: No active disease in the chest. Electronically signed by: John Oates M.D. 01/26/2017 7:11 AM Dictated Date/Time: 01/26/2017 7:11 AM
== END 2017-01-26 03:31 | disposition home or self-care (01) ==
LOC: EDBD 01:14 → C.EDB 01:15
DX: R25.1 Tremor, unspecified (principal); R30.0 Dysuria; Z98.890 Other specified postprocedural states; Z87.440 Personal history of urinary (tract) infections; R79.89 Other specified abnormal findings of blood chemistry

== ENCOUNTER → 2017-01-27 | Outpatient (CLI) | payer OTHER ==
[2017-01-27 10:20] LABS: BASO % 0.3 %; BASO ABS # 0.02 K/uL (0-0.2); EOS % 2.9 %; HEMATOCRIT 37.4 % (37-47); IG% 0.8 %; LYMPH % 23.3 %; LYMPH ABS # 1.47 K/uL (1.2-3.4); MEAN CELL VOLUME 79.6 fL (80-100); MEAN CORPUSCULAR HEMOGLOBIN 25.5 pg (25-34); MEAN PLATELET VOLUME 9.5 fL (7.4-10.4); MONO % 5.6 %; NEUT % 67.1 %; PLATELET COUNT 372 K/uL (130-400)
[2017-01-27 10:24] LABS: COMPLETE YES; MEAN CORPUSCULAR HGB CONC 32.1 g/dl (32-36)
[2017-01-27 10:53] LABS: ALB/GLOB RATIO 0.6 (0.9-2); ALKALINE PHOSPHATASE 121 U/L (45-117); ALT/SGPT 199 U/L (12-78); AST/SGOT 96 U/L (15-37); BLOOD UREA NITROGEN 12 mg/dl (7-18); BUN/CREATININE RATIO 20.7 (10-20); CALCIUM 9.1 mg/dl (8.5-10.1); CARBON DIOXIDE 24 mmol/L (21-32); CHLORIDE 108 mmol/L (98-107); CREATININE 0.59 mg/dl (0.60-1.20); GLUCOSE 111 mg/dl (70-99); SODIUM 140 mmol/L (136-145)
== END | disposition home or self-care (01) ==
LOC: C.LAB1850 09:45
PROVIDERS: ATTEND Obstetrics & Gynecology
DX: R94.5 Abnormal results of liver function studies (principal)

== ENCOUNTER → 2017-03-25 | Outpatient (CLI) | payer OTHER ==
[2017-03-25 15:13] LABS: ALKALINE PHOSPHATASE 79 U/L (45-117); ALT/SGPT 233 U/L (12-78); AST/SGOT 99 U/L (15-37)
== END | disposition home or self-care (01) ==
LOC: C.LAB1850 13:09
PROVIDERS: ATTEND Family Medicine
DX: R74.8 Abnormal levels of other serum enzymes (principal)

== ENCOUNTER → 2017-03-26 | Outpatient (CLI) | payer OTHER | END | disposition home or self-care (01) | LOC: C.LAB1850 13:52 | PROVIDERS: ATTEND Family Medicine | DX: R74.8 Abnormal levels of other serum enzymes (principal) ==

== ENCOUNTER → 2017-03-27 | Outpatient (CLI) | payer OTHER ==
--- NOTE | 2017-03-27 09:24 | DIAGNOSTIC IMAGING REPORT ---
ULTRASOUND RIGHT UPPER QUADRANT ABDOMEN CLINICAL HISTORY: Elevated hepatic transaminases. COMPARISON STUDY: No priors. TECHNIQUE: Real-time, grayscale, and color flow sonography of the right upper quadrant of the abdomen was performed. Images are reviewed in the transverse and longitudinal planes. FINDINGS: Liver: The liver is top normal in size and demonstrates heterogeneously increased echotexture consistent with hepatic steatosis. There is no intrahepatic biliary ductal dilatation. The main portal vein is patent. Gallbladder: There are several small gallbladder polyps which measure up to 4 mm. The gallbladder is otherwise normal in appearance. No gallstones are identified. There is no gallbladder wall thickening or pericholecystic fluid. A sonographic Bower's sign is reportedly absent. The common bile duct measures up to 0.4 cm in diameter. Pancreas: Visualized portions of the pancreatic head and body are normal in appearance. Right kidney: Survey images of the right kidney demonstrate normal size and echotexture. There is no hydronephrosis. Ascites: None. IMPRESSION: Hepatic steatosis. Electronically signed by: John Oates M.D. 03/27/2017 9:23 AM Dictated Date/Time: 03/27/2017 9:19 AM
== END | disposition home or self-care (01) ==
LOC: C.ULTRBC 08:54
PROVIDERS: ATTEND Family Medicine
DX: R74.8 Abnormal levels of other serum enzymes (principal); K76.0 Fatty (change of) liver, not elsewhere classified

== ENCOUNTER → 2017-05-08 | Outpatient (CLI) | payer OTHER ==
[2017-05-08 17:59] LABS: HEPATITIS B AB NEG
[2017-05-08 18:00] LABS: ALKALINE PHOSPHATASE 86 U/L (45-117); ALT/SGPT 112 U/L (12-78); AST/SGOT 55 U/L (15-37)
[2017-05-13 19:40] LABS: IGA SERUM 213 mg/dL (81-463); TIS TRANS IGA 2 U/mL (<4)
== END | disposition home or self-care (01) ==
LOC: C.LAB1850 16:08
PROVIDERS: ATTEND Registered Nurse
DX: R74.8 Abnormal levels of other serum enzymes (principal)

== ENCOUNTER → 2017-05-22 | Outpatient (CLI) | payer OTHER ==
[2017-05-22 16:52] LABS: ALT/SGPT 112 U/L (12-78); AST/SGOT 45 U/L (15-37); BLOOD UREA NITROGEN 12 mg/dl (7-18); BUN/CREATININE RATIO 17.5 (10-20); CALCIUM 8.9 mg/dl (8.5-10.1); CARBON DIOXIDE 26 mmol/L (21-32); CHLORIDE 107 mmol/L (98-107); CREATININE 0.67 mg/dl (0.60-1.20); GLUCOSE 81 mg/dl (70-99); POTASSIUM 3.8 mmol/L (3.5-5.1); SODIUM 140 mmol/L (136-145)
[2017-05-22 16:55] LABS: ALKALINE PHOSPHATASE 76 U/L (45-117)
== END | disposition home or self-care (01) ==
LOC: C.LAB1850 15:02
PROVIDERS: ATTEND Physician Assistant
DX: R74.8 Abnormal levels of other serum enzymes (principal)